=== PATIENT | female | born 1940 | race Caucasian/White ===

== ENCOUNTER 2017-02-25 14:51 | Outpatient (CLI) | payer OTHER ==
--- NOTE | 2017-02-25 15:37 | DIAGNOSTIC IMAGING REPORT ---
PROCEDURE: XR KNEE 3 VIEWS - LEFT INDICATION: L KNEE PX TECHNIQUE: Three views of the left knee. AP view right knee. COMPARISON: None. FINDINGS: Mildly decreased mineralization. Mild valgus deformity in the standing position. No acute fractures. Moderately severe lateral compartment joint space loss and moderate lateral marginal spur formation. Mild patellofemoral joint space loss and large spur formation. Small to moderate joint effusion. Prominent anterior thigh venous varicosities are seen. Mild calcific atherosclerosis. Right knee prosthesis in place without radiographic signs of loosening. IMPRESSION: 1. Moderately severe lateral compartment osteoarthritic changes. 2. Mild demineralization. 3. Right knee arthroplasty.
== END 2017-02-25 23:00 ==
LOC: XR SRH 14:51
DX: M17.11 Unilateral primary osteoarthritis, right knee (principal); Z96.651 Presence of right artificial knee joint

== ENCOUNTER 2017-03-31 09:46 | Outpatient (CLI) | payer OTHER ==
--- NOTE | 2017-03-31 12:41 | DIAGNOSTIC IMAGING REPORT ---
PROCEDURE: MG BILATERAL SCREENING W/CAD INDICATION: Screening, remote family history of breast cancer (paternal aunt) TECHNIQUE: Standard CC and MLO views bilaterally. Computer aided detection was used. COMPARISON: 10/11/2015, 10/04/2014, 09/21/2013 FINDINGS: Moderately dense patchy fibroglandular tissue is present bilaterally. Dystrophic calcifications are found bilaterally, left much more extensive than right. No developing densities, areas of architectural distortion, or suspicious microcalcifications. IMPRESSION: 1. Stable mammograms without radiographic evidence of malignancy. RESULT CODE: 1- Negative. A. A negative report should not delay biopsy if a dominant or clinically suspicious mass is present. 10-15% of cancers are not identified by x-ray. B. A negative report may reinforce clinical impression. C. Adenosis and dense breasts may obscure an underlying neoplasm. D. False positive reports average 6-10%. E.. A yearly screening mammogram is recommended. A reminder letter will be scheduled.
== END 2017-03-31 23:00 ==
LOC: MAM SRH 09:46
DX: Z12.31 Encounter for screening mammogram for malignant neoplasm of breast (principal)

== ENCOUNTER 2017-06-14 10:41 | Outpatient (CLI) | payer OTHER ==
--- NOTE | 2017-06-14 12:59 | DIAGNOSTIC IMAGING REPORT ---
PROCEDURE: US VENOUS - BILATERAL EXT INDICATION: ULCERS OF ANKLES TECHNIQUE: Duplex sonography of the deep and superficial venous system in both lower extremities was performed. Compression and augmentation techniques were used. The patient was scanned in the upright position. Surveillance of the venous system during Valsalva maneuver when appropriate was performed. COMPARISON: 06/04/2016 FINDINGS: Each interrogated segment of the deep vein demonstrates normal compressibility, augmentation, and normal color Doppler flow without filling defect. No thrombus in either greater saphenous or short saphenous vein. There is no venous reflux in the right greater saphenous vein. The vein measures 5.1 mm in maximal diameter in the proximal segment. There is venous reflux in the left greater saphenous vein. Reflux duration is 5.3 seconds. The vein measures 3.8 mm in the refluxing segment and 7 mm in maximal diameter in the proximal segment. There is no venous reflux in the right or left deep system. Varicose veins are visible in the left mid thigh. IMPRESSION: 1. Venous reflux present in the left mid greater saphenous vein, less extensive compared to the prior study. 2. Venous varicosities left mid thigh. 3. No deep vein thrombosis or reflux.
== END 2017-06-14 23:00 ==
LOC: US SRH 10:41
DX: L97.309 Non-pressure chronic ulcer of unspecified ankle with unspecified severity (principal); I87.2 Venous insufficiency (chronic) (peripheral); I83.92 Asymptomatic varicose veins of left lower extremity